=== PATIENT | female | born 2000 | race Caucasian/White ===

== ENCOUNTER 2022-07-24 12:14 | Emergency (ER) | payer OTHER, MEDICAID ==
[~2022-07-24] VITALS: Ht 162.6 cm; Wt 54.4 kg
[2022-07-24 12:15] VITALS: BP_SYST 108
[2022-07-24] MEDS ORDERED: CYCL10TA24 PO (13:34)
[2022-07-24] MEDS ORDERED: LIDO1ADH77 TD (13:34)
[2022-07-24] MEDS ORDERED: ACET-2634 PO (13:34)
[2022-07-24] MEDS ORDERED: IBUP-1969 PO (13:34)
== END 2022-07-24 14:09 | disposition home or self-care (01) ==
LOC: SED 12:14
DX: S16.1XXA Strain of muscle, fascia and tendon at neck level, initial encounter (principal); R51.9 Headache, unspecified; Z88.1 Allergy status to other antibiotic agents; Z79.899 Other long term (current) drug therapy; V89.2XXA Person injured in unspecified motor-vehicle accident, traffic, initial encounter; Y93.89 Activity, other specified; Y92.89 Other specified places as the place of occurrence of the external cause; Y99.8 Other external cause status
CPT/HCPCS: 99283